=== PATIENT | female | born 1965 | race Caucasian/White ===

== ENCOUNTER 2021-07-01 14:16 | Outpatient (CLI) | payer OTHER, SELFPAY ==
--- NOTE | ~2021-07-01 | US_ITS ---
EXAMINATION: US pelvic complete DATE: 07/01/2021 14:34 INDICATION: Postmenopausal bleeding TECHNIQUE: Multiple transabdominal sonographic images of the pelvis were obtained. COMPARISON: None. FINDINGS: The uterus measures 7.1 x 3.3 x 5.4 cm. The endometrial complex measures 7 mm. The right ov naz measures 2.8 x 1.7 x 2.1 cm. The left ovary measures 3.1 x 1.6 x 2.7 cm. There is normal vascular flow in the ovaries. There is no free fluid in the pelvis. IMPRESSION: 1. Endometrial thickening which may be due to hyperplasia, polyp, or malignancy. Endometrial sampling is recommended. Reviewed, dictated and finalized at location [facility]. IMPRESSION: 1. Endometrial thickening which may be due to hyperplasia, polyp, or malignancy . Endometrial sampling is recommended.
== END 2021-07-01 14:17 ==
PROVIDERS: PCP Emergency Medicine; Visit Provider Nurse Practitioner
DX: R10.2 Pelvic and perineal pain (principal); Z95.0 Presence of cardiac pacemaker; R93.89 Abnormal findings on diagnostic imaging of other specified body structures
CPT/HCPCS: 76856

== ENCOUNTER 2022-04-29 10:42 | Outpatient (CLI) | payer BC, SELFPAY ==
[2022-04-29 11:35] LABS: Urine Cotinine NEGATIVE
== END 2022-04-29 10:43 | disposition home or self-care (01) ==
LOC: ANHLAB 10:44
PROVIDERS: PCP Emergency Medicine; Visit Provider Surgery Plastic and Reconstructive Surgery
DX: Z01.812 Encounter for preprocedural laboratory examination (principal); Z51.81 Encounter for therapeutic drug level monitoring; Z79.899 Other long term (current) drug therapy
CPT/HCPCS: 80307

== ENCOUNTER 2022-05-03 00:04 | Day surgery (SDC) | payer BC, SELFPAY ==
[2022-04-25 15:19] VITALS: BMI 27.4
--- NOTE | 2022-04-25 15:24 | PC.NURSE ---
Report to the Outpatient Waiting Room, entrance under the green pavilion located off [facility], at 1000 on 05-03-2022. OR Time: 1200. - You and your visitor will be asked a series of questions to screen for COVID 19 for your protection. - Only one visitor is allowed at this time. - The patient visitor is requested to leave or wait in car when not with patient. - A mask is required within the hospital. Patients may have clear liquids (water, carbonated beverages, clear teas, apple juice) until 3 hours prior to surgery with a maximum of 20 ounces. 0900 - No food from midnight until time of surgery - Infants may have breast milk until 4 hours before surgery, infant formula 6 hours prior to surgery. - Children will be allowed to drink immediately following surgery. If applicable, please bring a bottle or sippy cup to assist with drinking. Juice, water, soda, and popsicles are readily available. For infants on formula, please bring formula the day of surgery. Pacifiers are allowed. Take the following medications with a SIP of water the morning of surgery: Xanax and Louin if needed Medications to discontinue per physician: N/A Please no make-up, nail welsh, hairspray, perfume, deodorant, or body powder the day of surgery. No jewelry (including any body piercings) or valuables the day of surgery, leave them at home. Please take a shower or bath the night before, or the morning of, surgery with an antibacterial soap. Wear comfortable, loose fitting clothing. Children are encouraged to wear pajamas. - Jewelry must be removed prior to entering the operating room. Rings and piercings that are not removed may be cut off. - The hospital will not accept responsibility for valuables. - Please leave all valuables, including medications, at home the day of surgery. If you are going home after surgery, a licensed cattle driver must drive you home. - NO public transportation without another adult. - We recommend that an adult stay with you for 24 hours following discharge. - We also recommend that you do not drive, make important decision, drink alcoholic beverages, or take any drugs that were not prescribed by your health care provider for at least 24 hours after your discharge time. For Pediatric surgeries, we recommend two adults accompany the child home (only one inside the building at this time). Follow any additional instructions given to you from your surgeon. If you or anyone in your household have experienced Covid symptoms in the past week, please notify your surgeon or the nurse liaison at the phone number below for possible testing. Telephone instructions given to Izabela Arnold and asked if any additional questions and then verbalized understanding. Patient advised to call surgeon office or pre surgery nurse liaison [phone] if any additional questions.
--- NOTE | 2022-05-02 13:37 | WPDANESEPPF ---
Anes - Initial Pre Proc Eval Procedure: Operation Date: 05/03/22 12:00 Proposed Procedures p Bilateral Breast Implant Exchange with Capsulectomy - Jadiel Lim MD s Bilateral Breast Fat Grafting, Bilateral Breast Scar Revision - Jadiel Lim MD Date/Time: 05/02/22 13:37 Surgeon: Jadiel Lim MD Pre Op Diagnosis: acquired breast deformity Patient Data Age: 57 Gender: F Height: 1.68 m Weight: 77.11 kg Allergies Allergy/AdvReac Type Severity Reaction Status Date / Time amoxicillin [From Augmentin] AdvReac Mild Nausea and Verified 04/25/22 14:55 Vomiting clavulanic acid AdvReac Mild Nausea and Verified 04/25/22 14:55 [From Augmentin] Vomiting Home Medications Medication Instructions Recorded Confirmed Type docusate sodium 100 mg capsule 100 mg PO DAILY #14 caps 04/19/22 04/25/22 Rx (Colace) ondansetron HCl 4 mg tablet 4 mg PO Q8H #21 tabs 04/19/22 04/25/22 Rx carisoprodol 350 mg tablet (Soma) 350 mg PO TID PRN muscle pain #21 04/20/22 04/25/22 Rx tabs alprazolam 0.25 mg tablet 0.25 mg PO QID PRN Anxiety 04/25/22 04/25/22 History hydrocodone 5 mg-acetaminophen 325 1 tablet PO BID PRN Pain 04/25/22 04/25/22 History mg tablet hydrocodone 5 mg-acetaminophen 325 1 tablet PO Q6H PRN pain #30 tabs 05/01/22 Rx mg tablet Patient hx anesthesia problems: none Family hx anesthesia problems: none Results Review: All pre-operative results and documents have been reviewed as part of the pre-operative evaluation. [facility] Past Medical History Medical History (Updated 05/02/22 @ 13:41 by Francis Burrell DO) Anxiety History of breast cancer PIERRE (nonalcoholic steatohepatitis) 2011 secondary to chemo Surgical History Surgical History (Updated 05/02/22 @ 13:40 by Francis Burrell DO) History of breast reconstruction History of cholecystectomy History of mastectomy Social History Social History Smoking packs per day: 0.5 Smoking cigarettes per day: 10.0 Years smoked: 7 Smoking pack-years: 3.50 Smoking status: Former smoker Tobacco type: cigarettes and e-cigarettes/vaping Second hand tobacco smoke exposure: No Alcohol intake: never Substance use: never Substance use type: does not use Last use: 04-18-22 Living arrangements: with family Spiritual care concerns: No Anes - Eval Final PreProcedure Day of Procedure 05/02/22 13:37 Patient weight: overweight Heart: regular rate and rhythm Lungs: clear to auscultation Airway: Mallampati scale class II Neurological: alert and oriented Last oral intake: >/= 8 hours ASA classification: III Emergent: no Anesthetic plan: proceed Anesthesia type and monitoring: general ETT and standard monitoring Results Review: All pre-operative results and documents have been reviewed as part of the pre-operative evaluation. Informed Consent: The patient's anesthetic plan and its attendant risks and benefits were discussed with the patient/family/POA. Questions were solicited and answers provided to the satisfaction of the patient/family/POA.
[2022-05-03] VITALS (10 sets, daily range): BP systolic 130–149; BP diastolic 66–95; PULSE 69–96; RESP 12–19; TEMP 36.1–36.6; O2SAT 94–100
[2022-05-03] MEDS: LACTATED RINGERS 1,000 ML 30 ML IV CONT ×2 (10:00→15:44)
[2022-05-03 10:13] LABS: Urine Cotinine NEGATIVE
--- NOTE | 2022-05-03 12:41 | WPDHPUPDATE1 ---
History and Physical Update Update Date/Time: 05/03/22 12:41 History and Physical has been reviewed, including an updated exam of the patient. There are NO changes in the patient's condition. Risks, benefits, and alternatives have been discussed and questions answered. Patient agrees to proceed with procedure.
--- NOTE | 2022-05-03 13:00 | W.PM.PROC2 ---
Procedure Note - Detailed Date of Procedure 05/03/22 Pre-op Diagnosis acquired breast deformity Post-op Diagnosis Same Procedure Performed 1. Bilateral breast implant exchange 2. Bilateral breast fat grafting 3. Bilateral capsulectomy 4. Bilateral lateral breast suction lipectomy. 5. Bilateral breast scar revision. Surgeon Jadiel Lim MD Anesthesia General Findings Previous implants (removed) Bilateral Allergan style [id number] textured shaped implants Bilateral breast implants Right - REF# [id number] SN [id number] - 360 cc filled to 390 cc Left - REF# [id number] SN [id number] - 360 cc filled to 390 cc Breast fat grafting (abdominal harvest site) Right - 100 cc Left - 50 cc Lateral breast / chest wall suction lipectomy Right - 100 cc Left - 50 cc Description of Procedure Preoperatively the risks, benefits, alternatives were discussed in extensive detail. I want her to be very realistic about the risks involved as well as expectations. Made sure answered all of her questions to her satisfaction. We discussed her nicotine use. She states she has had zero nicotine use. She also has had a negative cotinine. She understands she still has increased risk. This was outlined extensively including but not limits to the to the risk of implant loss, skin loss or skin and need for additional procedures, open wounds, skin grafts, and permanent deformity. I made sure she was very well informed about these risks before proceeding. She would like proceed. She understands these risks and voiced clear understanding. Consent was obtained. She was marked in the preoperative holding area with her verification. She was taken to the operating room placed supine on the operating room table. Anesthesia provided by anesthesiology and prepped and draped in a standard sterile fashion. Surgical time-out was taken. I did a thorough abdominal examination ruling out any hernias. A 14 gauge needle was used to make a periumbilical stab incision. Infiltration was completed with a tumescent solution giving adequate time for hemostasis. Using a 3 mm multi hole suction cannula to gravity separation at fat collecting device suction lipectomy was completed in the volume of 600 cc. A 14 gauge needle was used to make a small opening for suction lipectomy of bilateral lateral breast. Tumescent solution was infiltrated waited for adequate time for hemostasis. A 3 mm basket cannula was utilized in order to provide smooth contour based on S.A.F.E. technique. Once adequate time for separation of the adipose tissue to in completed stab incision made in the breast and infiltrated using a 3 mm single hole cannula in multiple planes and passes to the volumes as above. This was bilateral. Fifteen blade used to excise previous scar. Dissection was continued down until the capsule was identified and removed as much of the capsules I felt I could safely do so leaving some behind due to the thin skin flap nature. Implants removed and noted as above. Capsulotomy was performed as necessary. I then irrigated with 3 L of saline solution on TUR tubing total volume split between bilateral breasts. I then irrigated with Betadine solution. Wash my gloves. On the back table removed all the air from the implant and this was introduced into the pocket. I filled using a fill kit to the volumes as above. Verified the valve was seated. This was closed using 2-0 Vicryl followed by 3-0 Stratafix in a running subcuticular 4-0 Monocryl and finally tissue glue. A lightly applied bra and abdominal binder were placed. Patient was woken taken the PACU without difficulty. All instrument sponge counts were correct at the end of the case. Estimated Blood Loss 50 Drains No Packing No Pathology Yes (Bilateral breast capsules) Complications No immediate complications Condition Stable Disposition PACU
[2022-05-03] MEDS: ceFAZolin 2 GM/D5W 50 ML 2 GM/50 ML BAG IVPB (13:27)
[2022-05-03] MEDS: TRANEXAMIC ACID 1,000MG/ISO100 1,000 MG/100 ML BAG 200 MG IVPB (13:38)
[2022-05-03] MEDS: NACL 0.9% IRRIG POUR BOTTLE 900 ML, GENTAMICIN SULFATE INJ 160 MG, ceFAZolin 2 GM, POVI... IRRIGATION (15:28)
[2022-05-03] MEDS: LACTATED RINGERS IRRIG 1,000 ML, LIDOCAINE HCL 1% LOCAL INJ 50 ML, EPINEPHrine HCL INJ ... INFILTRATE ×2 (15:28→15:29)
[2022-05-03] MEDS: fentaNYL CITRATE INJ (*CRX) 100 MCG/2 ML VIAL 25 MCG IV PUSH ×8 (16:04→16:18)
[2022-05-03] MEDS: HYDROmorphone HCL INJ (*CRX) 1 MG/ML SYR 0.5 MG IV PUSH ×3 (16:24→17:46)
[2022-05-03] MEDS: ONDANSETRON INJ 4 MG/2 ML VIAL IV PUSH (16:38)
[2022-05-03] MEDS: oxyCODONE HCL (*CRX) 5 MG TAB IR PO (16:59)
== END 2022-05-03 18:04 | disposition home or self-care (01) ==
PROVIDERS: PCP Emergency Medicine; Visit Provider Surgery Plastic and Reconstructive Surgery
PROC: (CPT 19342; principal; 2022-05-03 12:00)
PROC: (CPT 19380; 2022-05-03 12:00)
DX: N65.0 Deformity of reconstructed breast (principal); Z85.3 Personal history of malignant neoplasm of breast; F41.9 Anxiety disorder, unspecified; Z92.21 Personal history of antineoplastic chemotherapy; Z87.891 Personal history of nicotine dependence
CPT/HCPCS: 19380; 80307; 88304; A9270; J0171; J0690; J1100; J1170; J1580; J2250; J2405; J2704; J3010; J7120

== ENCOUNTER 2022-06-28 13:41 | Outpatient (CLI) | payer BC, SELFPAY ==
[2022-06-28 14:13] LABS: Anion Gap 9 mmol/L (8-16); Blood Urea Nitrogen 9 mg/dL (7-17); Calcium 9.2 mg/dL (8.4-10.2); Carbon Dioxide 28 mmol/L (22-30); Chloride 101 mmol/L (98-107); Estimated Glomerular Filt Rate > 60; Glucose 116 mg/dL (65-110); Potassium 3.8 mmol/L (3.4-5.0); Sodium 138 mmol/L (137-145)
[2022-06-28 14:19] LABS: Hematocrit 43.5 % (37.0-47.0); Hemoglobin 14.4 g/dL (12.0-15.0); Mean Corpuscular HGB Conc 33.1 g/dl (32-36); Mean Corpuscular Hemoglobin 31.6 pg (26-34); Mean Corpuscular Volume 95.4 fl (80-100); Mean Platelet Volume 10.2 fl (7.4-10.4); Platelet Count Result 263 k/mm3 (150-375); Red Blood Count 4.56 M/mm3 (4.2-5.4)
== END 2022-06-28 13:42 | disposition home or self-care (01) ==
PROVIDERS: PCP Emergency Medicine; Visit Provider Surgery Plastic and Reconstructive Surgery
DX: R53.83 Other fatigue (principal); G89.29 Other chronic pain
CPT/HCPCS: 36415; 80048; 85027

== ENCOUNTER 2022-08-18 00:43 | Day surgery (SDC) | payer BC, SELFPAY ==
[2022-07-20 14:05] VITALS: BMI 27.0
--- NOTE | 2022-07-20 14:08 | PC.NURSE ---
Addendum entered by Jayda Bahena RN 08/10/22 15:27: PATIENT RESCHEDULED TIME TO ARRIVE TO WAITING ROOM 11:30AM FOR SURGERY 08/18/22 AT 13:30 20OZ OF CLEAR LIQUIDS AFTER MIDNIGHT UNTIL 10:30 Original Note: Report to the Outpatient Waiting Room, entrance under the green pavilion located off [facility], at time 06:00AM on date 07-28-22. Planned Procedure Time: 07:30AM. Time changes happen often and if your time is changed the preop area will call you the afternoon before. - You and your visitor will be asked to self-screen and do not enter if you have any COVID symptoms. - We encourage only one visitor and NO visitors under age 16 are allowed at this time. Your visitor will receive communication by the phone number that is given day of service. - The patient visitor is requested to social distance or may leave the building when not with patient due to restrictions. - A mask is required within the hospital. Patients may have clear liquids (water, carbonated beverages, clear teas, apple juice) until 3 hours prior to surgery (04:30AM) with a maximum of 20 ounces. - No food from midnight until time of surgery Take the following medications with a SIP of water the morning of surgery: XANAX, NORCO NEEDED Medications to discontinue per physician N/A Date to take last dose: N/A Please no make-up, nail swedish, hairspray, perfume, deodorant, or body powder the day of surgery. No jewelry (including any body piercings) or valuables the day of surgery, leave them at home. Please take a shower or bath the night before, or the morning of, surgery with an antibacterial soap. Wear comfortable, loose fitting clothing. - Jewelry must be removed prior to entering the operating room. Rings and piercings that are not removed may be cut off. - The hospital will not accept responsibility for valuables. - Please leave all valuables, including medications, at home the day of surgery. If you are going home after surgery, a licensed food service driver must drive you home. - NO public transportation without another adult. - We recommend that an adult stay with you for 24 hours following discharge. - We also recommend that you do not drive, make important decision, drink alcoholic beverages, or take any drugs that were not prescribed by your health care provider for at least 24 hours after your discharge time. Follow any additional instructions given to you from your surgeon. If you or anyone in your household have experienced Covid symptoms in the past week, please notify your surgeon or the nurse liaison at the phone number below for possible testing. Telephone instructions given to PATIENT and asked if any additional questions and then verbalized understanding. Patient advised to call surgeon office or pre surgery nurse liaison [phone] if any additional questions.
[2022-08-10 15:25] VITALS: BMI 27.3
--- NOTE | 2022-08-17 14:45 | WPDANESEPPF ---
Anes - Initial Pre Proc Eval Procedure: Operation Date: 08/18/22 13:30 Proposed Procedures p Right Breast Implant Placement Versus Tissue Combat Systems Operator - Jadiel Lim MD Date/Time: 08/17/22 14:45 Surgeon: Jadiel Lim MD Pre Op Diagnosis: hx of breast cancer Patient Data Age: 57 Gender: F Height: 1.68 m Weight: 77 kg Allergies Allergy/AdvReac Type Severity Reaction Status Date / Time amoxicillin [From Augmentin] AdvReac Mild Nausea and Verified 08/10/22 15:23 Vomiting clavulanic acid AdvReac Mild Nausea and Verified 08/10/22 15:23 [From Augmentin] Vomiting Home Medications Medication Instructions Recorded Confirmed Type alprazolam 0.25 mg tablet 0.25 mg PO QID PRN Anxiety 04/25/22 08/10/22 History hydrocodone 5 mg-acetaminophen 325 1 tablet PO BID PRN Pain 04/25/22 08/10/22 History mg tablet Patient hx anesthesia problems: none Family hx anesthesia problems: none Results Review: All pre-operative results and documents have been reviewed as part of the pre-operative evaluation. [facility] Past Medical History Medical History (Updated 05/02/22 @ 13:41 by Francis Burrell DO) Anxiety History of breast cancer PIERRE (nonalcoholic steatohepatitis) 2012 secondary to chemo Surgical History Surgical History (Updated 05/02/22 @ 13:40 by Francis Burrell DO) History of breast reconstruction History of cholecystectomy History of mastectomy Social History Social History Smoking packs per day: 0.5 Smoking cigarettes per day: 10.0 Years smoked: 10 Smoking pack-years: 5.00 Smoking status: Former smoker Tobacco type: cigarettes and e-cigarettes/vaping Second hand tobacco smoke exposure: No Smoking end date: 10/02/09 Additional smoking assessment comments: CURRENT NON NICOTINE VAPE USE Alcohol intake: never Substance use: never Substance use type: does not use Last use: 04-18-22 Living arrangements: with family Spiritual care concerns: No Anes - Eval Final PreProcedure Day of Procedure 08/17/22 14:45 Patient weight: overweight Heart: regular rate and rhythm Lungs: clear to auscultation Airway: Mallampati scale class II Neurological: alert and oriented Last oral intake: >/= 8 hours ASA classification: III Emergent: no Anesthetic plan: proceed Anesthesia type and monitoring: general LMA and standard monitoring Results Review: All pre-operative results and documents have been reviewed as part of the pre-operative evaluation. Informed Consent: The patient's anesthetic plan and its attendant risks and benefits were discussed with the patient/family/POA. Questions were solicited and answers provided to the satisfaction of the patient/family/POA.
[2022-08-18] VITALS (8 sets, daily range): BP systolic 120–152; BP diastolic 71–96; PULSE 68–81; RESP 12–18; TEMP 36.9; O2SAT 94–99
[2022-08-18] MEDS: LACTATED RINGERS 1,000 ML 30 ML IV CONT (11:33)
[2022-08-18 12:10] LABS: INR 1.2; Prothrombin Time 14.4 Seconds (11.1-14.7)
[2022-08-18 12:11] LABS: Partial Thromboplastin Time 28.1 SECONDS (22.3-36.8)
--- NOTE | 2022-08-18 13:37 | WPDHPUPDATE1 ---
History and Physical Update Update Date/Time: 08/18/22 13:37 History and Physical has been reviewed, including an updated exam of the patient. There are NO changes in the patient's condition. Risks, benefits, and alternatives have been discussed and questions answered. Patient agrees to proceed with procedure.
--- NOTE | 2022-08-18 13:48 | P.OP_ITS ---
Procedure Note - Detailed Date of Procedure 08/18/22 Pre-op Diagnosis hx of breast cancer acquired right breast deformity Post-op Diagnosis Same Procedure Performed I&D Right breast Surgeon Jadiel Lim MD Anesthesia General Findings Right breast with significant drainage. Back wall with dark discoloration in spotty apperance. Aerobic, Anaericbic, Atypical Mycobacteria, and fungul cultures taken. 15 Ran drain placed. Description of Procedure She would like proceed with placement of right breast implant. She understands we may have to stage this with a tissue row boss hoeing. She declines AlloDerm and would like to keep this as simple as possible given her history of infection with her original procedure many years ago and more recent exchange. Again today risks, benefits, alternatives were discussed in extensive detail. I want her to be very realistic about the risks involved as well as expectations. Made sure answered every one of her questions to her satisfaction. She voiced a clear understanding. Consent obtained. She was taken to the operating room placed supine on operating room table. Anesthesia provided by anesthesiology. She was prepped and draped in a standard sterile fashion. Surgical time-out was taken. 1% lidocaine and 0.25% Marcaine with epinephrine was used anesthetize locally. As I was preparing to make the incision and noted drainage from the wound. This was yellow. Some a solid component but mostly serous. Fifteen blade used to excise a portion of the previous and dissection was continued down to the pocket was identified. At this point I noticed significant fluid in the pocket. This was worrisome for infection. Further on the back wall there is dark discoloration in this body appearance. There was really no material to debride they did take cultures of the fluid as well as fungal cultures of the back wall. I copiously irrigated with saline solution followed by a Betadine solution. I placed a 15 Ran drain 3 previous scar that she had from what appears to be a drain. This was sutured in place with 3-0 nylon. This was closed with 2-0 Vicryl followed by 3-0 Stratafix a running subcuticular 4-0 Monocryl and tissue glue. She tolerated well. Dressings were placed. She was woken taken the PACU without difficulty. All instrument sponge counts were correct at the end of the case. Estimated Blood Loss 5 Drains Yes (15 Ran right breast) Packing No Pathology Yes Complications No immediate complications Condition Stable Disposition PACU
[2022-08-18] MEDS: ceFAZolin 2 GM/D5W 50 ML 2 GM/50 ML BAG IVPB (14:27)
[2022-08-18] MEDS: BUPIVACAINE/EPINEPHRINE 0.25% 50 ML VIAL 30 ML INFILTRATE (14:45)
[2022-08-18] MEDS: NACL 0.9% IRRIG POUR BOTTLE 900 ML, GENTAMICIN SULFATE INJ 160 MG, ceFAZolin 2 GM, POVI... IRRIGATION (14:45)
[2022-08-18] MEDS: fentaNYL CITRATE INJ (*CRX) 100 MCG/2 ML VIAL 25 MCG IV PUSH ×4 (15:30→15:50)
[2022-08-18] MEDS: oxyCODONE HCL (*CRX) 5 MG TAB IR PO (16:54)
== END 2022-08-18 17:10 | disposition home or self-care (01) ==
PROVIDERS: Anesthesiology; PCP Emergency Medicine; Visit Provider Surgery Plastic and Reconstructive Surgery
PROC: (CPT 19020; principal; 2022-08-18 13:30)
DX: N65.0 Deformity of reconstructed breast (principal); N64.89 Other specified disorders of breast; Z85.3 Personal history of malignant neoplasm of breast; Z92.21 Personal history of antineoplastic chemotherapy; Z90.13 Acquired absence of bilateral breasts and nipples; F41.9 Anxiety disorder, unspecified; Z87.891 Personal history of nicotine dependence
CPT/HCPCS: 19020; 36415; 85610; 85730; 87015; 87070; 87075; 87102; 87116; 87205; 87206; A9270; J0690; J1100; J1580; J2250; J2405; J2704; J3010; J7030; J7120

== ENCOUNTER 2022-11-21 08:06 | Outpatient (CLI) | payer BC, SELFPAY ==
--- NOTE | ~2022-11-21 | US_ITS ---
US soft tissue chest DATE: 11/21/2022 09:44 INDICATION: Right chest wall mass or less than one month. History of bilateral mastectomy and left br east malignancy TECHNIQUE: Ultrasound imaging of left and right mastectomy sites, chest wall COMPARISON: None FINDINGS: A left breast implant is identified. There are numerous circumscribed sonolucent and hypoechoic lesions scattered along the left and right chest wall, without internal vascularity or posterior shadowing. The largest on the right is a septated cyst that measures up to 4.4 x 9.6 mm. The largest on the left measures 3 x 10 mm. Considering the circumscribed margins, lack of internal vascularity or shadowing and the multiplicity , these are likely benign. IMPRESSION: BI-RADS Category 3: Probably benign Consider 6 month ultrasound follow-up examination Alternatively, consider PET/CT imaging to exclude metastases. Reviewed, dictated and finalized at [facility]. Reviewed, dictated and finalized at location [facility]. T STRIPPER
== END 2022-11-21 08:07 ==
PROVIDERS: PCP Emergency Medicine; Visit Provider Surgery Plastic and Reconstructive Surgery
DX: R92.8 Other abnormal and inconclusive findings on diagnostic imaging of breast (principal); Z85.3 Personal history of malignant neoplasm of breast; Z90.13 Acquired absence of bilateral breasts and nipples; R93.89 Abnormal findings on diagnostic imaging of other specified body structures
CPT/HCPCS: 76604

== ENCOUNTER 2023-09-18 09:16 | Outpatient (CLI) | payer OTHER, SELFPAY ==
[2023-09-18 10:05] LABS: Prothrombin Time 13.8 Seconds (11.1-14.7)
[2023-09-18 10:06] LABS: Partial Thromboplastin Time 27.2 SECONDS (22.3-36.8)
[2023-09-18 10:25] LABS: Anion Gap 7 mmol/L (8-16); Blood Urea Nitrogen 9 mg/dL (7-17); Calcium 9.2 mg/dL (8.4-10.2); Carbon Dioxide 26 mmol/L (22-30); Chloride 108 mmol/L (98-107); Estimated Glomerular Filt Rate > 60; Glucose 103 mg/dL (65-110); Potassium 3.6 mmol/L (3.4-5.0); Sodium 141 mmol/L (137-145)
== END 2023-09-18 09:17 | disposition home or self-care (01) ==
LOC: ANHSURGERY 09:19
PROVIDERS: Anesthesiology; PCP Emergency Medicine; Visit Provider Surgery Plastic and Reconstructive Surgery
DX: Z01.818 Encounter for other preprocedural examination (principal); K75.81 Nonalcoholic steatohepatitis (NASH)
CPT/HCPCS: 36415; 80048; 85610; 85730

== ENCOUNTER 2023-09-19 00:41 | Day surgery (SDC) | payer OTHER, SELFPAY ==
[2023-09-14 12:41] VITALS: BMI 27.1
--- NOTE | 2023-09-14 12:46 | PC.NURSE ---
Report to the Outpatient Waiting Room, entrance under the green pavilion located off [facility], at time 10:00 on date 09/19/23. Planned Procedure Time: 12:00. Time changes happen often and if your time is changed the preop area will call you the afternoon before. - You and your visitor will be asked to self-screen and do not enter if you have any COVID symptoms. - A mask is optional within the hospital at this time. Patients may have clear liquids (water, carbonated beverages, clear teas, apple juice) until 3 hours prior to surgery (9:00) with a maximum of 20 ounces. - No food from midnight until time of surgery Take the following medications with a SIP of water the morning of surgery: XANAX IF NEEDED DO NOT STOP ANY OF YOUR OTHER PRESCRIPTION MEDICATIONS PRIOR TO SURGERY ?EXCEPT THE FOLLOWING Medications to discontinue per physician: N/A Date to take last dose: N/A Please no make-up, nail spanish, hairspray, perfume, deodorant, or body powder the day of surgery. No jewelry (including any body piercings) or valuables the day of surgery, leave them at home. Please take a shower or bath the night before, or the morning of, surgery with an antibacterial soap. Wear comfortable, loose fitting clothing. - Jewelry must be removed prior to entering the operating room. Rings and piercings that are not removed may be cut off. - The hospital will not accept responsibility for valuables. - Please leave all valuables, including medications, at home the day of surgery. If you are going home after surgery, a licensed tram driver must drive you home. - NO public transportation without another adult if you receive anesthesia. - We recommend that an adult stay with you for 24 hours following discharge. - We also recommend that you do not drive, make important decision, drink alcoholic beverages, or take any drugs that were not prescribed by your health care provider for at least 24 hours after your discharge time. Follow any additional instructions given to you from your surgeon. If you or anyone in your household have experienced Covid symptoms in the past week, please notify your surgeon or the nurse liaison at the phone number below for possible testing. Telephone instructions given to PT - DENEEN MILIAN and asked if any additional questions and then verbalized understanding. Patient advised to call surgeon office or pre surgery nurse liaison [phone] if any additional questions.
[2023-09-19 10:04] VITALS: BP 153/81; PULSE 78; RESP 16; TEMP 36.6; O2SAT 98
[2023-09-19 10:15] LABS: Urine Cotinine POSITIVE
--- NOTE | 2023-09-19 10:18 | SUR.PREOP ---
Informed Dr Lim of postive cotinine.
--- NOTE | 2023-09-19 10:26 | WPDHPUPDATE1 ---
History and Physical Update Update Date/Time: 09/19/23 10:26 Patient with positive cotinine. Had a lengthy discussion about risks, benefits, alternatives and after hearing this she would like to cancel and proceed with nicotine free.
--- NOTE | 2023-09-19 10:35 | SUR.PREOP ---
Dr Lim cancelled case after speaking with patient.
== END 2023-09-19 10:38 | disposition home or self-care (01) ==
PROVIDERS: PCP Emergency Medicine; Visit Provider Surgery Plastic and Reconstructive Surgery
DX: Z42.1 Encounter for breast reconstruction following mastectomy (principal); Z53.01 Procedure and treatment not carried out due to patient smoking
CPT/HCPCS: 80307; 99212; G0463; J0690; J1580